=== PATIENT | female | born 1965 | race African-American/Black ===

== ENCOUNTER 2016-08-18 16:47 | Observation (INO) | payer OTHER ==
--- NOTE | ~2016-08-18 | DS ---
Unit #: [id number] #: [id number] Patient: BG LINDSAY [id number] [address] [address] [id number] I MR#: [id number] NAME: BG LINDSAY. ROOM: [facility] Age: 51 Sex: F Admission Date: 08/18/2016 : 1965 Discharge Date: 08/20/2016 Attending Physician: Dave Maynard M.D. Primary Care Physician: Suki Marina DISCHARGE SUMMARY ADMITTING DIAGNOSES 1. Atypical chest pain. 2. Hypertension. 3. Hyperlipidemia. 4. Hypothyroidism. 5. Paroxysmal atrial fibrillation. 6. Tobacco abuse. 7. Morbid obesity with a body mass index of 53. 8. Family history of premature coronary artery disease. 9. Mild hypokalemia. DISCHARGE DIAGNOSES 1. Atypical chest pain; thought to be noncardiac based on testing. 2. Hypertension. 3. Hyperlipidemia. 4. Hypothyroidism. 5. Paroxysmal atrial fibrillation. 6. Tobacco abuse. 7. Morbid obesity with a body mass index of 53. 8. Family history of premature coronary artery disease. 9. Mild hypokalemia. PROCEDURES PERFORMED Include: 1. EKG shows normal sinus rhythm with a ventricular rate of 68. 2. Lexiscan Cardiolite stress test shows no ischemia with a fixed defect and an EF of 52%. 3. Chest x-ray shows no acute findings. HOSPITAL COURSE Ms. Lindsay is a 51-year-old Croatian-speaking female who presented with chest discomfort. She does have an extensive cardiac history including paroxysmal atrial fibrillation, hypertension, hyperlipidemia, vasospasm with previous heart catheterization. She was admitted and evaluated with a cardiac workup including a Lexiscan Cardiolite stress test as stated above. Dr. Carney has evaluated her today and feels as though she is ready for discharge and I am completing this dictation per her request. A 2D echocardiogram has also been completed which showed EF of 50% to 55% with no regional wall motion abnormalities noted. Mild dilated left atrium. Mild mitral regurgitation. Mild tricuspid regurgitation with RVSP of 37. Currently, blood pressure 149/87, pulse 52, respirations 20, temperature 97.7, 98% oxygenated on room air. She is 305 pounds. DIAGNOSTIC STUDIES Unit #: [id number] #: [id number] Patient: BG LINDSAY LABORATORY: Cholesterol 110, triglycerides 92, LDL 58, HDL 35, TSH 1.55, D-dimer 488, troponin less than 0.03 x2 and less than 0.05 x2 upon arrival at point of care. BMP 18. Sodium 137, potassium 3.4, glucose 109, BUN 16, creatinine 0.8. Hemoglobin 13, hematocrit 40.9, platelets 206 and white blood cell count 9.3. DISCHARGE MEDICATIONS Include: 1. Ventolin one puff inhalation q.4 h. p.r.n. for shortness of breath. 2. Neurontin 600 mg t.i.d. 3. Celexa 40 mg daily. 4. Doxepin 25 mg daily. 5. Lipitor 80 mg daily. 6. Risperdal 2 mg p.o. h.s. 7. BuSpar 5 mg b.i.d. 8. Coreg 12.5 mg b.i.d. 9. Hydrochlorothiazide 25 mg daily. 10. Lisinopril 20 mg daily. 11. Aspirin 81 mg daily. 12. Omeprazole 20 mg daily. 13. Cyclobenzaprine 5 mg daily. 14. Levothyroxine 0.2 mg daily. Of note, no changes have been made to her home medication list during her hospitalization. DISCHARGE INSTRUCTIONS 1. Low-sodium cardiac diet. 2. Activity as tolerated. FOLLOWUP 1. Dr. Carney in the next six weeks. She may need a repeat ischemic evaluation including a heart catheterization if she is to return with chest pain. This is per Dr. Carney's recommendations. 2. She may wish to follow up with Dr. Low her primary care physician for noncardiac chest pain as well. Dictated by... Mary Lira.P.R.N. for Cristina Benites TD: 08/20/2016 16:12 JOB #: [id number] Unit #: [id number] #: [id number] Patient: BG LINDSAY DISCHARGE SUMMARY Page 1 of 1 X X DISCHARGE SUMMARY
--- NOTE | ~2016-08-18 | BMI ---
[facility] Nutrition Therapy DATE: 08/19/16 Patient: BG LINDSAY Physician: DESI Address: [address] [place] [address] Room/Bed: [address] [place] [address], Zip: [place] [address] Admit Date: 08/18/16 Date of : [birth year] Height: 5 3 Weight: 303 137.6 HIGH BMI NOTE: DX: 51 Y.O. FEMALE ADMITTED FOR CHEST PAIN ANTHROPOMETRICS: 5'3", WT: 300# (136 KG), BMI: 53.1 DIET: NPO INTERVENTION: 1. NPO RECOMMENDATIONS: 1. ONCE MEDICALLY FEASIBLE, ADVANCE DIET INDICATED TO CC+HH TO PROMOTE GRADUAL WEIGHT LOSS TOWARDS HEALTHY BMI (19.0-25.0) OR +/-10%IBW RD WILL F/U PER PROTOCOL Respectfully, JULIAN LOPEZ MS, RD, LD Food and Nutritional Services [facility] cc: client file
--- NOTE | ~2016-08-18 | ST ---
Unit #: [id number] #: [id number] Patient: BG LINDSAY [id number] [address] [address] [id number] I MR#: [id number] NAME: BG LINDSAY. : 1965 SEX: F STUDY DATE/TIME: 08/19/2016 UNIT: [facility] ROOM: 565 STUDY DESCRIPTION: Attending Physician: Dave Maynard M.D. Primary Care Physician: Suki Marina CARDIOLOGY REPORT EXAM EKG portion of Lexiscan Cardiolite stress test. REASON FOR EXAM Chest pain. DISCUSSION Baseline EKG reveals sinus bradycardia with a ventricular rate of 57 beats per minute. Early repolarization noted. No acute ST or T wave changes. A total of 0.4 mg of Lexiscan was injected per protocol followed by Cardiolite. There were no complaints of chest pain. There were no sustained arrhythmias noted. There were no ST or T wave changes to suggest ischemia. The maximal heart rate was 96 beats per minute with a maximal blood pressure of 158/86 mmHg. Test was stopped due to protocol completion. IMPRESSION 1. Negative EKG portion of Lexiscan Cardiolite stress test. 2. There were no complaints of chest pain. 3. There were no sustained arrhythmias noted. 4. There were no ST or T wave changes to suggest ischemia. 5. Please correlate with Cardiolite images. Dictated by... Carmen Batista APRN for Cristina Benites TD: 08/19/2016 15:05 JOB #: [id number] Unit #: [id number] #: [id number] Patient: BG LINDSAY CARDIOLOGY REPORT Page 1 of 1 X CARDIOLOGY REPORT
--- NOTE | ~2016-08-18 | EKG ---
PATIENT: BG LINDSAY UNIT #: [id number] Ventricular Rate: 68 BPM Atrial Rate: 68 BPM P-R Interval: 148 ms QRS Duration: 94 ms Q-T Interval: 412 ms QTC Calculation(Bezet): 438 ms P Grand Chain: 46 degrees Calculated R Grand Chain: 67 degrees Calculated T Grand Chain: 58 degrees Diagnosis Line: Normal sinus rhythm Diagnosis Line: Normal ECG Diagnosis Line: When compared with ECG of 17-MAY-2015 22:11, Diagnosis Line: No significant change was found Diagnosis Line: Confirmed by VICTOR MANUEL HURLEY MD ([id number]) on 08/19/2016 Diagnosis Line: 7:15:55 PM INTERPRETING MD: MEI GALVEZ
--- NOTE | ~2016-08-18 | HP ---
Unit #: [id number] #: [id number] Patient: BG LINDSAY [id number] [facility]. [place], [place] [address] [id number] I MR#: [id number] NAME: BG LINDSAY. ROOM: 565 Age: 51 Sex: F Admission Date: 08/18/2016 : 1965 Attending Physician: Dave Maynard M.D. Primary Care Physician: Suki Weiss Aprn HISTORY AND PHYSICAL REASON FOR ADMISSION Chest pain. HISTORY OF PRESENT ILLNESS This is a pleasant 51-year-old [place], Citizen [place]-speaking female. All information was gathered from previous records and collected with the help of the technician automated equipment who is currently present at bedside. The patient has a past medical history of non-ST elevation W[place] in 2001, paroxysmal atrial fibrillation, not on anticoagulation, hypertension, hyperlipidemia, hyperthyroidism, GERD, and tobacco abuse. The patient underwent cardiac catheterization in December [address] Kelly at [facility] which showed no significant left main stenosis, overall normal coronaries, but incidental vasospasm of the RCA. Left ventricular ejection fraction was 60% to 65% at that time. She also had a 2D echocardiogram at [facility] in 2012 which showed an LVEF of 60% to 65%, mild TR, trace MR, and RVSP of 40-50 mmHg. The patient reports to me that she has been having complaints of substernal pain for the last day or so that are intermittent in nature. She describes them as pressure. These episodes occur at rest; however, she states they seem to be worsened with movement and ambulation. She also notices increasing shortness of breath which has been occurring she states for quite some time. Yesterday, her pain persisted therefore requiring her to seek evaluation. She denies any radiation of the pain and no nausea, vomiting, or diaphoresis. The patient does have risk factors for coronary artery disease which include hypertension, hyperlipidemia, prediabetes, and obesity, as well as smoking history, and a family history significant for coronary artery disease in both her father, mother, and brother which is premature. Initial EKG showed normal sinus rhythm, rate of 68 beats per minute, QTc interval of 438 msec, and no acute ischemic changes noted. Point of care troponins have been less than 0.05 x2. Chest x-ray showed no acute findings. At present, she is in normal sinus rhythm. Blood pressures are stable. In the emergency room, she did receive aspirin and nitroglycerin with which she reported relief of her symptoms. We are admitting the patient for evaluation of the above. PAST MEDICAL HISTORY 1. Hypertension. 2. Hyperlipidemia. Unit #: [id number] #: [id number] Patient: BG LINDSAY 3. Hyperthyroidism. 4. Paroxysmal atrial fibrillation, not on anticoagulation. 5. Gastroesophageal reflux disease. 6. Continued tobacco abuse. 7. Cardiac catheterization on December 27, 2012, per Dr. Kelly, at [facility], showed LVEF of 60% to 65%, no significant left main stenosis, and normal coronaries. There was incidental vasospasm of the right coronary artery. 8. Non-ST elevation [place] in July 2002 at [facility]. 9. A 2D echocardiogram in 2012 at [facility] showed LVEF of 60% to 65%, mild TR, trace MR, and RVSP of 40-50 mmHg. 10. History of thyromegaly and thyroid toxicosis, status post thyroidectomy. 11. Patient had an exercise Cardiolite in 2009 which showed no stress-induced ischemia. PAST SURGICAL HISTORY 1. Right oophorectomy and salpingectomy. 2. Cholecystectomy. 3. Appendectomy. 4. Thyroidectomy. SOCIAL HISTORY The patient is of [place] descent and speaks only Citizen [place]. Information is obtained via technician automated equipment at bedside. She lives with her family. She does smoke about a half a pack a day since age 16. She denies illicit drugs or alcohol. FAMILY HISTORY Coronary artery disease with an WV in her brother at age 47, also WV in both her mother and father, and father in his 50s. ALLERGIES PENICILLIN. HOME MEDICATIONS 1. Omeprazole 20 mg p.o. daily. 2. Coreg 12.5 mg p.o. b.i.d. 3. BuSpar 5 mg p.o. daily. 4. Risperdal 2 mg p.o. at bedtime. 5. Synthroid 0.2 mg p.o. daily. 6. Lipitor 80 mg p.o. daily. 7. Celexa 40 mg p.o. daily. 8. Hydrochlorothiazide 25 mg p.o. daily. 9. Cyclobenzaprine 5 mg p.o. daily p.r.n. 10. Lisinopril 20 mg p.o. daily. 11. Aspirin 81 mg p.o. daily. 12. Neurontin 600 mg p.o. t.i.d. 13. Doxepin 25 mg p.o. daily. 14. Ventolin 1 puff inhalation q.4 hours p.r.n. REVIEW OF SYSTEMS Recent weight gain, fatigue, positive lower extremity swelling worse in the evening, and mini-stroke. Otherwise negative except for what was stated above in the History of Present Illness. PHYSICAL EXAMINATION GENERAL APPEARANCE: This is a pleasant, 51-year-old [place], Unit #: [id number] #: [id number] Patient: BG LINDSAY Citizen [place]-speaking female with morbid obesity, who is currently in no acute distress. All information is gathered via the technician automated equipment. VITAL SIGNS: Temperature 98, respiratory rate 18-20, pulse 60, and blood pressure 128/74. BMI 53. HEENT: Head is atraumatic and normocephalic. NECK: Trachea is midline. No JVD, no carotid bruits. LUNGS: Clear to auscultation, diminished in the bases. HEART: S1 and S2. No murmur, gallop, or rub. ABDOMEN: Large, obese pannus. Positive bowel sounds. EXTREMITIES: Pulses are palpable. No clubbing, cyanosis, or edema is noted. DIAGNOSTIC STUDIES LABORATORY: Sodium 134, potassium 3.4, chloride 104, CO2 of 29, BUN 16, creatinine 0.8, and glucose 109. Hemoglobin 13, hematocrit 40.9, WBC 9.3, and platelet count 205,000. Point of care troponins thus far have been negative x2. IMAGING: Chest x-ray shows heart size stable, no acute findings, no acute infiltrate, and prominent pulmonary vasculature. CARDIOLOGY: EKG shows normal sinus rhythm at 68 beats per minute, QTc interval 438 msec, and no acute ischemic change. IMPRESSION 1. Atypical chest pain, rule out myocardial infarction. 2. Hypertension, currently controlled. 3. Hyperlipidemia. 4. Hyperthyroidism, status post thyroidectomy. 5. History of paroxysmal atrial fibrillation, not on anticoagulation. 6. Continued tobacco abuse. 7. Morbid obesity with a body mass index of 53. 8. Family history of premature coronary artery disease. 9. Mild hypokalemia. PLAN 1. The patient has been admitted for chest pain. Her symptoms appear atypical. However, she does have significant risk factors for cardiovascular disease which include hypertension, hyperlipidemia, prediabetes, obesity, and continued tobacco abuse, as well as a family history of premature coronary artery disease. 2. The patient has not had ischemia evaluation since 2009. At that time, it was negative. Would recommend proceeding with Lexiscan Cardiolite stress test today to rule out any evidence of ischemic heart disease. Will also check a D-dimer stat. If abnormal, the patient will undergo CTA to rule out pulmonary embolus. 3. Will check fasting lipid profile and TSH on blood in the lab. Will also get a 2D echocardiogram to assess LV function and for any valvular abnormalities. 4. She will also have 40 mEq of KCl x1 now. 5. The patient was educated on the importance of lifestyle modification which includes diet and exercise and also the importance of smoking cessation. 6. Further recommendations pending the outcome of the Lexiscan Cardiolite today. If Lexiscan Cardiolite is normal and the patient continues to complain of chest pain, she may need a repeat cardiac catheterization. 1. Unit #: [id number] #: [id number] Patient: BG LINDSAY Dictated by Janna Grossman A.P.R.N. for Eufemia Carney M.D. LMW/am TD: 08/19/2016 14:15 JOB #: [id number] HISTORY AND PHYSICAL Page 1 of 1 X Janna Grossman APRN X HISTORY AND PHYSICAL
--- NOTE | ~2016-08-18 | CR72 ---
[facility] A Service of [facility] RADIOLOGY TEXT RESULTS PATIENT: BG LINDSAY LOCATION: [facility] 565-01 : [birth year] UNIT #: [id number] AGE: [address]: Dave Maynard MD SEX: F ORDER DR: [id number] [facility] [address]. [place], [place] [address] [id number] I MR#: [id number] Acc #: [id number] NAME: BG LINDSAY. : 1965 SEX: F STUDY DATE/TIME: 08/18/2016 17:13 UNIT: [facility] ROOM: [facility] STUDY DESCRIPTION: CR Chest Single View Portable Attending Physician: Dave Maynard M.D. Ordering Physician: Alexsandra Ovalle M.D. MEDICAL IMAGING REPORT This report is preliminary unless electronic signature is present EXAM Portable chest INDICATIONS Shortness of breath and chest pain for 2 hours. COMPARISON 05/17/2015. FINDINGS No definite acute infiltrate. Heart size stable. Prominent pulmonary vasculature. IMPRESSION No acute finding. Dictated by... Dante Valdes M.D. THIS IS AN ELECTRONICALLY VERIFIED REPORT Dante Valdes M.D. at 08/19/2016 10:03 AM XAVIER/ella TD: 08/18/2016 21:54 JOB #: [id number] MEDICAL IMAGING REPORT Page 1 of 1 COPY
--- NOTE | ~2016-08-18 | TH ---
Unit #: [id number] #: [id number] Patient: BG LINDSAY [id number] [address] [address] [id number] I MR#: [id number] NAME: BG LINDSAY. : 1965 SEX: F STUDY DATE/TIME: 08/20/2016 UNIT: [facility] ROOM: 565 STUDY DESCRIPTION: Lexiscan stress test - Nuclear Attending Physician: Dave Maynard M.D. Primary Care Physician: Suki Weiss Aprn CARDIOLOGY REPORT PROCEDURE PERFORMED Lexiscan Cardiolite stress test - Nuclear portion. PROCEDURE Using technetium 99m-labeled Cardiolite, rest and stress SPECT images were obtained. Multiple SPECT images were obtained in various views, including horizontal and vertical long axis and short axis views of the left ventricle. Images were obtained by gated SPECT method. The patient was administered 30 mCi of Cardiolite at rest. The patient was administered 30 mCi of Cardiolite after Lexiscan infusion was completed. On the stress images, there is a small to medium sized area of moderately decreased tracer uptake activity anteriorly. The rest images also show a small to medium sized area of decreased tracer uptake actively anteriorly. Comparing the rest and stress images, there is a small to medium sized area of predominantly fixed defect seen anteriorly. The left ventricular ejection fraction is calculated to be 52%. There is no focal wall motion abnormality seen. CONCLUSION 1. There is a small to medium sized area of predominantly fixed defect seen anteriorly of unclear significance. 2. There is no obvious stress-induced ischemia noted. 3. The left ventricular ejection fraction is calculated to be 52%. 4. There is no focal wall motion abnormality seen. 5. Technically extremely limited study. Clinical correlation is requested. Dictated by... Cristina Benites TD: 08/20/2016 11:48 JOB #: [id number] Unit #: [id number] #: [id number] Patient: BG LINDSAY CARDIOLOGY REPORT Page 1 of 1 X Eufemia Carney MD <ELECTRONICALLY SIGNED> 11/21/16 1429 CARDIOLOGY REPORT
[~2016-08-18 16:47] MED LIST: ACETAMINOPHEN PO; ACETAMINOPHEN650 M1 PO; AMITRIPTYLINE H25 MG PO; AMITRYPTYLINE PO; ASPIRIN81 M1 PO; ASPIRIN81 M2 PO; ASPIRIN81 MG PO; BACTRIM DS TABL1 TA1 PO; BAYER CHEWABLE81 MG PO; CARAFATE PO; CARDIZEM CD PO; CARVEDILOL3.125 MG PO; CARVEDILOL6.25 MG PO; CIPRO PO; COREG12.5 MG PO; COREG6.25 MG PO; DAKIN'S MODIF1000 ML EXT; DICYCLOMINE HCL20 MG PO; DILTIAZEM 24HR120 MG PO; EC-NAPROSYN500 MG PO; FAMOTIDINE PO; FIORICET1 TAB PO; FLEXERIL10 MG PO; HYDROCHLOROTHIA25 MG PO; IMITREX50 MG PO; K-DUR20 ME1 PO; KEFLEX500 M1 PO; LEVOTHYROXINE75 MCG PO; LISINOPRIL PO; LISINOPRIL20 MG PO; LORTAB 5/500 TA1 TA1 PO; LORTAB 5/500 TA1 TA2 PO; LOVASTATIN10 MG PO; METHIMAZOLE10 MG PO; METOPROLOL TAR25 MG PO; METOPROLOL TART25 MG PO; NAPROSYN-EC500 M1 GT; NAPROSYN500 MG PO; NITROGLYGERIN0.4 MG SL; NITROSTAT0.4 MG SL; OMEPRAZOLE20 M1 PO; OMEPRAZOLE40 MG PO; ORUDIS75 M1 PO; PHENERGAN25 M1 PR; PREDNISONE10 MG PO; PRILOSEC20 MG PO; RANITIDINE HCL150 M1 PO; ROBAXIN500 MG PO; SANTYL15 G1 TP; SYNTHROID0.1 MG; SYNTHROID25 MCG PO; SYNTHROID75 MCG PO; VICOPROFEN 200-1 TAB PO; ZANTAC150 M1 PO
[2016-08-18 18:06] LABS: BASOPHIL% 0.3 % (0-2.5); EOSINOPHIL# 0.1 X10e3 (0-0.7); HEMATOCRIT 42.7 % (35.0-45.0); HEMOGLOBIN 13.6 gm/dL (12.0-16.0); LYMPHOCYTE# 3.6 X10e3 (1.0-3.5); LYMPHOCYTE% 35.7 % (17.0-45.0); MEAN CELL VOLUME 88.4 FL (83-96); MEAN CORPUSCULAR HEMOGLOBIN 28.2 PG (28-34); MEAN CORPUSCULAR HGB CONC 31.9 g/dL (30-36); MEAN PLATELET VOLUME 9.1 FL (6.5-11.5); MONOCYTE# 0.6 X10e3 (0-1.0); NEUTROPHIL# 5.7 X10e3 (1.5-7.1); PLATELET COUNT 224 X10e3 (140-420); RED BLOOD COUNT 4.83 X10e (3.90-5.30); RED CELL DISTRIBUTION WIDTH 13.5 % (11.0-15.5)
[2016-08-18 18:09] LABS: PARTIAL THROMBOPLASTIN TIME 25.2 SECONDS (23.5-31.3); PROTHROMBIN TIME (PATIENT) 10.6 SECONDS (9.6-11.5)
[2016-08-18 18:10] LABS: DIFF IND NO
[2016-08-18 18:19] LABS: POC - CKMB <1.0 ng/mL (0.0-7.9); POC - TROPONIN <0.05 ng/mL (<=0.05)
[2016-08-18 18:21] LABS: ALBUMIN SERUM 3.7 g/dL (3.5-5.0); ALKALINE PHOSPHATASE 87 U/L (32-92); ALT (SGPT) 20 U/L (10-40); AST (SGOT) 17 U/L (10-42); BILIRUBIN,TOTAL 0.2 mg/dL (0.2-2.0); BLOOD UREA NITROGEN 14 mg/dL (9-23); CALCIUM SERUM 8.9 mg/dL (8.4-10.2); CARBON DIOXIDE 29 mmol/L (22-31); CHLORIDE 102 mmol/L (100-111); CREATININE SERUM 0.8 mg/dL (0.6-1.4); GLOM FILT RATE Estimated 100.4 mL/min (>60); GLUCOSE FASTING 93 mg/dL (70-110); POTASSIUM 3.7 mmol/L (3.5-5.1); PROTEIN TOTAL SERUM 7.7 g/dL (6.0-8.3); SODIUM 138 mmol/L (135-145)
[2016-08-18 18:26] LABS: BILIRUBIN, DIRECT <0.1 mg/dL (0.0-0.2); BILIRUBIN,INDIRECT 0.1 mg/dL (0.0-0.9)
[2016-08-18] MEDS ORDERED: BUSPAR5 M1 PO (19:25)
[2016-08-18] MEDS ORDERED: COREG12.5 M1 PO (19:25)
[2016-08-18] MEDS ORDERED: OMEPRAZOLE20 M1 PO (19:25)
[2016-08-18] MEDS ORDERED: CITALOPRAM HBR40 MG PO (19:26)
[2016-08-18] MEDS ORDERED: LIPITOR80 MG PO (19:26)
[2016-08-18] MEDS ORDERED: RISPERDAL2 MG PO (19:26)
[2016-08-18] MEDS ORDERED: SYNTHROID0.2 MG PO (19:26)
[2016-08-18] MEDS ORDERED: LISINOPRIL20 MG PO (19:27)
[2016-08-18] MEDS ORDERED: CYCLOBENZAPRINE5 MG PO (19:27)
[2016-08-18] MEDS ORDERED: HYDROCHLOROTHIA25 MG PO (19:27)
[2016-08-18] MEDS ORDERED: DOXEPIN HCL25 MG PO (19:28)
[2016-08-18] MEDS ORDERED: ALBUTEROL17 GM INH (19:28)
[2016-08-18] MEDS ORDERED: NEURONTIN600 MG PO (19:28)
[2016-08-18] MEDS ORDERED: ASPIRIN81 M2 PO (19:28)
[2016-08-18 19:58] LABS: POC - CKMB <1.0 ng/mL (0.0-7.9); POC - TROPONIN <0.05 ng/mL (<=0.05)
[2016-08-19 00:11] LABS: %MB 1.2 % (0.0-4.0); MB 1.2 ng/ml
[2016-08-19 05:24] LABS: BASOPHIL% 0.5 % (0-2.5); EOSINOPHIL# 0.1 X10e3 (0-0.7); EOSINOPHIL% 1.3 % (0.0-7.0); HEMATOCRIT 40.9 % (35.0-45.0); LYMPHOCYTE# 3.6 X10e3 (1.0-3.5); LYMPHOCYTE% 38.5 % (17.0-45.0); MEAN CELL VOLUME 88.3 FL (83-96); MEAN CORPUSCULAR HGB CONC 31.7 g/dL (30-36); MONOCYTE# 0.7 X10e3 (0-1.0); MONOCYTE% 7.7 % (3.0-12.0); NEUTROPHIL# 4.9 X10e3 (1.5-7.1); PLATELET COUNT 206 X10e3 (140-420); RED BLOOD COUNT 4.64 X10e (3.90-5.30); RED CELL DISTRIBUTION WIDTH 13.6 % (11.0-15.5); WHITE BLOOD COUNT 9.3 X10e3 (4.0-10.5)
[2016-08-19 05:34] LABS: DIFF IND NO
[2016-08-19 05:54] LABS: CALCIUM SERUM 8.2 mg/dL (8.4-10.2); CREATININE SERUM 0.8 mg/dL (0.6-1.4); GLOM FILT RATE Estimated 100.4 mL/min (>60); POTASSIUM 3.4 mmol/L (3.5-5.1)
[2016-08-19 06:27] LABS: %MB 1.1 % (0.0-4.0)
[2016-08-19 14:44] LABS: CHOLESTEROL 111 mg/dL (0-200); HDL CHOLESTEROL 35 mg/dL (35-95); LDL CHOLESTEROL 58 mg/dL (-130); LDL/HDL RATIO 2 RATIO (0-4); TRIGLYCERIDES 92 mg/dL (10-160)
== END 2016-08-20 14:11 | disposition home or self-care (01) ==
LOC: CED 16:47 → CEDOF 19:00 → C5C 21:50
PROVIDERS: Emergency Medicine; Internal Medicine Advanced Heart Failure and Transplant Cardiology; Internal Medicine Cardiovascular Disease
DX: R07.89 Other chest pain (principal); I10 Essential (primary) hypertension; E78.5 Hyperlipidemia, unspecified; I48.0 Paroxysmal atrial fibrillation; E66.01 Morbid (severe) obesity due to excess calories; Z68.43 Body mass index [BMI] 50.0-59.9, adult; I08.1 Rheumatic disorders of both mitral and tricuspid valves; I25.2 Old myocardial infarction; E87.6 Hypokalemia; Z82.49 Family history of ischemic heart disease and other diseases of the circulatory system; E89.0 Postprocedural hypothyroidism; F17.200 Nicotine dependence, unspecified, uncomplicated; Z88.0 Allergy status to penicillin
CPT/HCPCS: 36415; 71010; 78452; 80048; 80061; 80076; 82550; 82553; 83880; 84443; 84484; 85025; 85379; 85610; 85730; 93005; 93017; 93306; 94760; 96374; 96375; 96376; 99285; A9500; G0378; J2270; J2405; J2785

== ENCOUNTER 2016-12-23 14:35 | Emergency (ER) | payer OTHER ==
[~2016-12-23 14:35] MED LIST changes: +ALBUTEROL17 GM INH; +BUSPAR5 M1 PO; +CITALOPRAM HBR40 MG PO; +COREG12.5 M1 PO; +CYCLOBENZAPRINE5 MG PO; +DOXEPIN HCL25 MG PO; +LIPITOR80 MG PO; +NEURONTIN600 MG PO; +RISPERDAL2 MG PO; +SYNTHROID0.2 MG PO
== END 2016-12-23 16:55 | disposition left against medical advice (07) ==
LOC: CED 14:35
DX: Z53.21 Procedure and treatment not carried out due to patient leaving prior to being seen by health care provider (principal)

== ENCOUNTER 2016-12-23 20:29 | Emergency (ER) | payer OTHER | END 2016-12-24 00:26 | disposition home or self-care (01) | LOC: CED 20:29 | DX: I10 Essential (primary) hypertension (principal); F32.9 Major depressive disorder, single episode, unspecified; I25.2 Old myocardial infarction; F17.200 Nicotine dependence, unspecified, uncomplicated; Z90.49 Acquired absence of other specified parts of digestive tract; Z79.82 Long term (current) use of aspirin; Z79.899 Other long term (current) drug therapy; Z88.0 Allergy status to penicillin | CPT/HCPCS: 36415; 96374; 96375; 99283; J1200; J1885; J2765 ==